=== PATIENT | male | born 1950 | race Caucasian/White ===

== ENCOUNTER 2021-02-25 18:40 | Inpatient (IN) | payer MEDICARE ==
[2021-02-25] VITALS (52 sets, daily range): BP systolic 47–160; BP diastolic 36–93
[~2021-02-25] VITALS: Ht 177.8 cm; Wt 87.9 kg
--- NOTE | ~2021-02-25 | CON ---
[address] [address] CONSULTATION Name: RYAN ROBLES Room: [address] IN .R.#: [id number] Admission: 02/25/21 Attend Phys: Amadou Velasco MD Discharge: 02/26/21 Date of : 50 Report #: [id number] THIS REPORT FOR: cc: LITTLE CARLOS,Alexandra Lacey MD ~ DATE OF CONSULTATION: 02/26/2021 NEPHROLOGY CONSULTATION CONSULTING PHYSICIAN: Dr. Velasco. REASON FOR NEPHROLOGY CONSULTATION: Acute kidney injury. REASON FOR ADMISSION: Chest pain. HISTORY OF PRESENT ILLNESS: This is a 70-year-old male with history of insulin-dependent diabetes mellitus, hypothyroidism, neuropathy, hypertension, dyslipidemia, BPH and depression, was having chest pain on and off for the past 2 days. He had chest pain again on 02/25/2021 evening. EMS was activated. 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 He was taken to the [facility] where he coded, cardiac catheterization was completed, it showed chronic CAD and he was then transferred to the ICU. Here, he is on 2 vasopressors, intubated on 40% FiO2, not receiving any IV fluids. His baseline kidney function is not known. His creatinine was 5.3 when he came in and it is at 5.1 today this morning and he has been making urine, although it has not been documented. There is good urine output in the [place] bag. His liver enzymes are also elevated. Currently, does not respond to me, but he did have some sedation on. His blood pressures have been off and on low. ALLERGIES: None reported. REVIEW OF SYSTEMS: Not able to obtain from the patient. He is intubated and sedated. HOME MEDICATIONS: Include insulin, hydralazine, gabapentin, duloxetine, tamsulosin, Coreg, atorvastatin, gabapentin, levothyroxine, and finasteride. PAST MEDICAL HISTORY: Includes insulin-dependent diabetes, hypothyroidism, neuropathy, hypertension, dyslipidemia, [place] [address] CONSULTATION Name: RYAN ROBLES Room: [address]#: [id number] Admission: 02/25/21 Attend Phys: Amadou Velasco MD Discharge: 02/26/21 Date of : 50 Report #: [id number] PAST SURGICAL HISTORY: Not known. SOCIAL HISTORY: He lives with his . No history of any tobacco use and further social history could not be obtained from the patient because he is sedated. FAMILY HISTORY: The patient is not able to provide. PHYSICAL EXAMINATION: VITAL SIGNS: Blood pressure is 113/66, temperature 37.4, pulse rate is 98, respiratory rate is 12, and pulse ox 100% on 40% FiO2. GENERAL: He is intubated and sedated. HEAD AND EYES: Atraumatic and normocephalic. Conjunctivae normal. EARS, NOSE, AND THROAT: Normal ears and nose and NG tube with bloody secretions. ET tube in place. NECK: JVD could not be seen. CHEST: Bilateral diminished breath sounds. No crackles. CARDIOVASCULAR: S1, S2 normal. No murmurs. ABDOMEN: Soft, it was nondistended. LOWER EXTREMITIES: There is no lower extremity edema. NEUROLOGICAL FUNCTION: Could not be assessed right now because he is sedated. PSYCHIATRIC: Unable to assess right now. LABORATORY DATA: WBC 12.0, hemoglobin 9.8. Sodium is 136, potassium 4.1, BUN is 53, CO2 of 24 and a creatinine of 5.1 and initial blood glucose was in 400s and now it is in 200s. Other labs are reviewed.: IMAGING: Chest x-ray was reviewed. ASSESSMENT: 1. Acute kidney injury. Admission creatinine of 5.3 in the setting of hypotension and the patient also had cardiac arrest in the [facility]. Try to find out his baseline creatinine. UA looks like a contaminated specimen with 3+ protein, 3+ blood, but no rbc's. We would also check a CPK level. We will check a renal ultrasound. 2. EKG showed post-infarct angina, possibly aneurysm formation, cardiac catheterization revealed coronary artery disease status post cardiac arrest in the [facility], acute coronary syndrome, unclear onset. 3. Diabetic ketoacidosis, which is improving. 4. History of diabetes mellitus type 2. We will defer to Internal Medicine for management. 5. Elevated liver enzymes, likely because of shock. We will defer to Internal [address] [place] [address] CONSULTATION Name: RYAN ROBLES Room: [address] IN M.R.#: [id number] Admission: 02/25/21 Attend Phys: Amadou Velasco MD Discharge: 02/26/21 Date of : 50 Report #: [id number] Medicine for management. 6. Hypertension. Currently in shock. 7. Dyslipidemia. We will defer to internal medicine. PLAN: 1. From Nephrology standpoint, he is nonoliguric. Start IV fluids, D5 normal saline at 75 mL an hour. 2. There is no acute need for dialysis. 3. Check renal ultrasound and try to find out his baseline creatinine. 4. Check a CPK level. 5. Try to keep his MAP around 65 to 70 and avoid nephrotoxic agents. Avoid further IV contrast exposure. 6. The patient is at risk for worsening of his kidney function because of contrast exposure yesterday. 7. We will continue to follow with you. Currently, he is critically ill. I spent 35 minutes in his critical care, this time was spent in chart review, placing orders and care coordination. Discussed with the patient's nurse. Check morning labs. By: [id number] Davis MD /funmi
[2021-02-25 19:07] LABS: BE -13.9 mmol/L (-2 to +3); PCO2 VENOUS 22.7 mmHg (41.0-51.0); PO2 VENOUS 206.9 mmHg (35.0-45.0)
[2021-02-25 19:08] LABS: ABSOLUTE EOSINOPHILS 0.1 thou/uL (0.0-0.7); ABSOLUTE LYMPHOCYTES 3.2 thou/uL (0.8-5.3); ABSOLUTE MONOCYTES 0.9 thou/uL (0.0-1.2); ABSOLUTE NEUTROPHILS 7.5 thou/uL (1.6-8.1); BASOPHILS 0.4 %; EOSINOPHILS 0.8 %; HEMATOCRIT 33.6 % (42.0-52.0); HEMOGLOBIN 10.5 gm/dL (14.0-18.0); LYMPHOCYTES 27.5 %; MCH 29.3 pg (26.0-34.0); MCHC 31.4 g/dL (28.0-37.0); MCV 93.2 fL (80.0-100.0); MONOCYTES 7.4 %; MPV 8.7 fl. (7.2-11.1); NUCLEATED RBCS 0 /100WBC; PLATELET COUNT* 229 thou/uL (150-400); POLYS 63.9 %; RDW-CV 14.9 % (10.5-14.5); WBC 11.8 thou/uL (4.0-11.0)
[2021-02-25 19:20] LABS: BUN 55 mg/dL (7-18); CHLORIDE 100 mmol/L (98-107); CREATININE 5.3 mg/dL (0.6-1.3); GLUCOSE 454 mg/dL (70-99); POTASSIUM 4.4 mmol/L (3.5-5.1); SODIUM 134 mmol/L (136-145)
[2021-02-25 19:30] LABS: ALBUMIN 3.2 g/dL (3.4-5.0); ALKALINE PHOSPHATASE 136 U/L (46-116); LIPASE 133 U/L (73-393); MAGNESIUM 2.2 mg/dL (1.8-2.4); NT-PRO BRAIN NAT PEPTIDE 7242 pg/mL (<300); SGOT 613 U/L (15-37); SGPT 89 U/L (30-65); TOTAL BILIRUBIN 0.6 mg/dL (<0.1-1.0); TOTAL PROTEIN 6.3 g/dL (6.4-8.2)
[2021-02-25 19:35] LABS: INR 1.1; PROTIME 11.9 Seconds (9.20-11.50)
[2021-02-25 20:10] LABS: ANION GAP 23 mmol/L (7-16); CALCIUM < 5.0 mg/dL (8.5-10.1); CO2 11 mmol/L (21-32)
[2021-02-25 20:11] LABS: APTT 117.8 Seconds (25.0-31.3)
[2021-02-25 22:10] LABS: ANTI-Xa-UNFRACTIONATED HEP 7.531; BE 3.3 mmol/L (-2 to +3); PCO2 34.4 mmHg (35.0-45.0); pH 7.503 (7.340-7.450)
[2021-02-25 22:17] LABS: PO2 143.3 mmHg (75.0-100.0)
[2021-02-26] VITALS (33 sets, daily range): BP systolic 72–189; BP diastolic 49–103
[2021-02-26 01:35] LABS: HEMATOCRIT 29.8 % (42.0-52.0); HEMOGLOBIN 9.8 gm/dL (14.0-18.0); MCH 29.2 pg (26.0-34.0); MCV 88.6 fL (80.0-100.0); MPV 8.4 fl. (7.2-11.1); NUCLEATED RBCS 0 /100WBC; PLATELET COUNT* 240 thou/uL (150-400); RBC 3.36 mil/uL (4.50-6.00); RDW-CV 14.4 % (10.5-14.5)
[2021-02-26 01:44] LABS: CALCIUM 8.3 mg/dL (8.5-10.1); CREATININE 5.1 mg/dL (0.6-1.3); POTASSIUM 4.1 mmol/L (3.5-5.1)
[2021-02-26 01:46] LABS: CREATININE 5.1 mg/dL (0.6-1.3); POTASSIUM 4.1 mmol/L (3.5-5.1)
[2021-02-26 01:47] LABS: CALCIUM 8.2 mg/dL (8.5-10.1); MAGNESIUM 2.1 mg/dL (1.8-2.4); PHOSPHORUS* 4.2 mg/dL (2.5-4.9)
[2021-02-26 02:23] LABS: URINE BILIRUBIN NEGATIVE (Negative); URINE BLOOD 3+ (Negative); URINE CLARITY CLEAR; URINE COLOR YELLOW; URINE GLUCOSE-RANDOM 2+ (Negative); URINE KETONES 1+ (Negative); URINE LEUKOCYTES-REFLEX NEGATIVE (Negative); URINE NITRITE-REFLEX NEGATIVE (Negative); URINE PROTEIN 3+ (Negative); URINE UROBILINOGEN 0.2 E.U./dl (0.2-1.0)
[2021-02-26 03:26] LABS: FINE GRANULAR CASTS 0-3 Few /LPF (None Seen); HYALINE CASTS 0-3 Few /LPF (None Seen); SQUAMOUS 4-10 Moderate /LPF (0-3)
[2021-02-26 03:27] LABS: BACTERIA-REFLEX 1-9 Few /HPF (None Seen); CRYSTALS None Seen /LPF (None Seen); URINE RBC 0-2 Rare /HPF (0-2); URINE WBC-REFLEX 6-15 Few /HPF (0-5)
[2021-02-26] MEDS ORDERED: PROSCAR 5MG TABL5 M1 PO (04:12)
[2021-02-26] MEDS ORDERED: LEVO-T100 MCG PO (04:12)
[2021-02-26] MEDS ORDERED: NEURONTIN 300M300 M2 PO (04:12)
[2021-02-26] MEDS ORDERED: VITAMIN D3250 MC1 PO (04:13)
[2021-02-26] MEDS ORDERED: HYDRALAZINE 2525 M1 PO (04:14)
[2021-02-26] MEDS ORDERED: GLUCOSAMINE CO1 EAC4 PO (04:14)
[2021-02-26] MEDS ORDERED: LIPITOR 40 MG T40 M1 PO (04:14)
[2021-02-26] MEDS ORDERED: DULOXETINE HCL30 MG PO (04:15)
[2021-02-26] MEDS ORDERED: FLOMAX0.4 MG PO (04:15)
[2021-02-26] MEDS ORDERED: INSULIN AS100 UNIT/2 (04:17)
[2021-02-26 06:10] LABS: ABSOLUTE MONOCYTES 0.8 thou/uL (0.0-1.2); ABSOLUTE NEUTROPHILS 10.2 thou/uL (1.6-8.1)
[2021-02-26 06:11] LABS: PLATELET ESTIMATE ADEQUATE
[2021-02-26 09:28] LABS: CALCIUM 8.5 mg/dL (8.5-10.1); POTASSIUM 3.3 mmol/L (3.5-5.1)
[2021-02-26 09:31] LABS: ALBUMIN 2.7 g/dL (3.4-5.0); MAGNESIUM 1.9 mg/dL (1.8-2.4); PHOSPHORUS* 3.3 mg/dL (2.5-4.9)
--- NOTE | 2021-02-26 11:31 | EKG ---
[place] [address] ELECTROCARDIOGRAM REPORT Name: RYAN ROBLES Room: [address] ADM IN .R.#: [id number] Admission: 02/25/21 Attend Phys: Amadou Velasco, Discharge: Date of : 50 Date of Service: 02/25/211840 Report #: [id number] THIS REPORT FOR: //name// [facility] ED Test Date: 2021-02-25 Test Time: 18:41:47 Pat Name: RYAN ROBLES Department: Room: [facility] Gender: M Release Specialist: KENDY : 1950 Requested By: Patrick Li Order Number: [id number] MD: Frank Murphy Measurements Intervals [place] Rate: 49 P: LA: QRS: -63 QRSD: 135 T: -35 QT: 514 QTc: 465 Interpretive Statements Junctional rhythm Right bundle branch block Inferior infarct, recent Minimal ST elevation, anterior leads Lateral leads are also involved No previous ECG available for comparison Electronically Signed On 02-26-2021 11:31:12 CDT by Frank Murphy [email or web address] <ELECTRONICALLY SIGNED> By: Chino Murphy MD, [facility] 02/26/21 1131 40 40 Chino Murphy MD, [facility] /EPI
--- NOTE | 2021-02-26 11:46 | 2DMMODE ---
[place] [address] 2 D/M-MODE ECHOCARDIOGRAM Name: TRAVISRYAN Catracho Room: [address] IN .R.#: [id number] Admission: 02/25/21 Attend Phys: Amadou Velasco, Discharge: 02/26/21 Date of : 50 Date of Service: 02/26/21 1145 Report #: [id number] THIS REPORT FOR: cc: LITTLE CARLOS,Chino Ordaz MD [facility] ~ APPROVED REPORT Study performed: 02/25/2021 22:59:13 EXAM: Comprehensive 2D, Doppler, and color-flow Echocardiogram Patient Location: Bedside BSA: 2.14 HR: 96 bpm BP: 129/66 mmHg Other Information Study Quality: Adequate Technically limited study due to inability to position patient, patient on ventilator. Indications Congestive Heart Failure 2D Dimensions IVSd: 15.06 (7-11mm) LVOT Diam: 19.91 (18-24mm) LVDd: 38.94 mm PWd: 10.27 (7-11mm) Ascending Ao: 39.42 (22-36mm) LVDs: 31.48 (25-40mm) Aortic Root: 31.20 mm Volumes Left Atrial Volume (Systole) LA ESV Index: 20.00 mL/m2 Aortic Valve AoV Peak Lupillo.: 1.46 m/s AO Peak Gr.: 8.56 mmHg LVOT Max P.84 mmHg AO Mean Gr.: 4.52 mmHg LVOT Mean P.87 mmHg LVOT Max V: 0.98 m/s AO V2 VTI: 17.01 cm LVOT Mean V: 0.62 m/s CATHRYN (VTI): 2.57 cm2 LVOT V1 VTI: 14.03 [place] [address] 2 D/M-MODE ECHOCARDIOGRAM Name: RYAN ROBLES Room: [address] IN ..#: [id number] Admission: 02/25/21 Attend Phys: Amadou Velasco, Discharge: 02/26/21 Date of : 50 Date of Service: 02/26/21 1145 Report #: [id number] Mitral Valve E/A Ratio: 0.85 MV Decel. Time: 128.46 ms MV E Max Lupillo.: 0.67 m/s MV PHT: 37.25 ms MVA (PHT): 5.91 cm2 TDI E/Lateral E': 3.35 E/Medial E': 5.58 Medial E' Lupillo.: 0.12 m/s Lateral E' Lupillo.: 0.20 m/s Pulmonary Valve PV Peak Lupillo.: 1.00 m/s PV Peak Gr.: 4.04 mmHg Tricuspid Valve RAP Estimate: 10.00 mmHg TR Peak Gr.: 30.30 mmHg RVSP: 40.30 mmHg PA Pressure: 40.30 mmHg Left Ventricle The left ventricle is normal size. Regional wall motion abnormalities are noted. There is normal left ventricular wall thickness. Left ventricular systolic function is mildly decreased. LVEF is 40-45%. Grade I - abnormal relaxation pattern. Right Ventricle Right ventricle is dilated. Right ventricle is hypokinetic. Pacemaker lead is present. Atria The left atrium size is normal. Lipomatus atrial septal hypertrophy is present. The right atrium size is normal. Aortic Valve The aortic valve is normal in structure. No aortic regurgitation is present. There is no aortic valvular stenosis. Mitral Valve The mitral valve is normal in structure. Trace mitral regurgitation. No evidence of mitral valve stenosis. Tricuspid Valve The tricuspid valve is normal in structure. [place] [address] 2 D/M-MODE ECHOCARDIOGRAM Name: RYAN ROBLES Room: [address] IN ..#: [id number] Admission: 02/25/21 Attend Phys: Amadou Velasco, Discharge: 02/26/21 Date of : 50 Date of Service: 02/26/21 1145 Report #: [id number] Pulmonic Valve The pulmonary valve is normal in structure. Trace pulmonic regurgitation. Great Vessels The aortic root is normal in size. The ascending aorta is borderline dilated. IVC is normal in size and collapses <50% with inspiration. Pericardium There is no pericardial effusion. <Conclusion> LVEF is 40-45%. Grade I - abnormal relaxation pattern. Left ventricular systolic function is mildly decreased. There is normal left ventricular wall thickness. The left ventricle is normal size. Regional wall motion abnormalities are noted. Right ventricle is dilated. Right ventricle is hypokinetic. The aortic valve is normal in structure. No aortic regurgitation is present. There is no aortic valvular stenosis. Trace mitral regurgitation. Mild tricuspid regurgitation. Trace pulmonic regurgitation. The ascending aorta is borderline dilated. There is no pericardial effusion. <ELECTRONICALLY SIGNED> By: Chino Murphy MD, FACC 02/26/21 1145 1145 1145 Chino Murphy MD, FACC /INF
--- NOTE | 2021-02-28 09:25 | CARD ---
[address] [address] CARDIAC CATH REPORT Name: RYAN ROBLES Room: [address]#: [id number] Admission: 02/25/21 Attend Phys: mAadou Velasco MD Discharge: 02/26/21 Date of : 50 Report #: [id number] THIS REPORT FOR: cc: LITTLE CARLOS,Aric Brandt MD ~ APPROVED REPORT Study performed: 02/25/2021 18:43:28 Patient Details Patient Status: ED Room #: The patient is a 70 year-old male Event Personnel Aric Rangel Sewer Hand, Marlen Sutton RN Raw Scales Operator, Misa Real RN RN, Kei Starks [employer], Bozena Feliciano RTR Monitor Procedures Performed Art Access - R femoral artery Fidel Access - L femoral vein Left Heart Cath w/or w/o Coronaries Temporary Pacemaker Lead Inserted Indication STEMI (>24 hrs to = 48 hrs), Unstable angina , Chest pain, The patient presented with chest pain and dyspnea, onset greater than 24 hrs. ECG revealed large Q waves with mild ST elevation of 1 mm in the inferior leads-suggestive for infarct with postinfarct angina and/or aneurysm. Risk Factors Peripheral Vascular Disease, HypercholesterolemiaPhysical Activity, HypertensionRenal Failure, Diabetes Admission/Lab Medications/Medications given during procedure Lidocaine Subcut 14 ml, Oxygen Nasal cannula 2 l per min, 0.9% Sodium Chloride IV 75 ml per hr, Angiomax IV 13 ml, Aggrastat IV 9.2 ml, Angiomax Drip IV 30 ml per hr, Dopamine IV 5 mcg per kg per min, Dopamine IV 10 mcg per kg per min, Dopamine IV 6 mcg per kg per min, Dopamine IV 3 mcg per kg per min, Versed IV 2 [place] [address] CARDIAC CATH REPORT Name: RYAN ROBLES Room: [address]#: [id number] Admission: 02/25/21 Attend Phys: Amadou Velasco MD Discharge: 02/26/21 Date of : 50 Report #: [id number] The patient was brought emergently to the Cardiac Catheterization Laboratory and was prepped and draped in a sterile manner. The right femoral was infiltrated with 2% Lidocaine subcutaneous anesthesia. IV conscious sedation was used throughout procedure with appropriate monitoring and was performed in the presence of a registered nurse who was an independent trained observer other than the physician performing the procedure. A [place] 6 FR sheath was inserted into the right femoral artery. Coronary angiography was performed using coronary diagnostic catheters. The right coronary system was accessed and visualized with a Guide 6 Fr AL .75 catheter. The left coronary system was accessed and visualized with a Diagnostic 6 Fr JL 4 catheter. The left ventricle was accessed and visualized with a Diagnostic 6 Fr Pigtail catheter. Left ventricular/Aortic Valve gradient assessed via catheter pullback. Left ventriculogram was performed in OMALLEY projection. The patient tolerated the procedure well and there were no complications associated with the procedure. A Argon 6 Fr sheath was inserted in the right femoral vein. A temporary pacemaker was inserted and paced at a rate of 70 with a MA of 8. Patient was intubated with a 7.5 size tube and placed on a vent. Intraoperative Conscious Sedation Sedation start time: 2026 Case end Time: 2027 Versed 4 mg Fluoro Time: 26.6 minutes Dose: DAP [id number] cGycm2 2111 mGy Contrast Type and Amount: Visipaque 120 mL Coronary Angiography The patient's coronary anatomy is right dominant. Diagnostic Cath Left Main The left main artery is a large-caliber vessel with mild distal tapering. LAD The LAD is a moderate-sized caliber vessel, calcified. It traverses the anterior wall and wraps around the apex. There is moderate to severe diffuse disease in the mid and distal segments with HARESH-3 blood flow. Diagonal 1 The diagonal artery is heavily calcified with a total occlusion at the ostium. There is faint filling of the proximal segment via collaterals. Circumflex There is mild disease in the proximal segment of the left circumflex artery. Supplies 2 [place] [address] CARDIAC CATH REPORT Name: RYAN ROBLES Catracho Room: [address] IN ..#: [id number] Admission: 02/25/21 Attend Phys: Amadou Velasco MD Discharge: 02/26/21 Date of : 50 Report #: [id number] OM1 This is a high takeoff from the left circumflex artery. This is a small to moderate-sized caliber vessel, with severe disease proximally. OM2 This is a moderate-sized caliber vessel, with no flow-limiting lesions. Right Coronary The RCA appears to be dominant vessel, heavily calcified throughout. There is a total occlusion in the proximal segment. Left Ventriculography The left ventricle is normal in size with Decreased contractility. The left ventricular ejection fraction is estimated to be 30-35%. Left ventricular wall motion abnormalities are present. Hemodynamics The aortic pressure is 111/45 mmHg with a mean of 36 mmHg. The left ventricular pressure is 113/19 mmHg with a mean of mmHg. The left ventricular end diastolic pressure is 22 mmHg. PCI Technique Lesion Percutaneous coronary intervention was performed on the proximal right coronary artery. The lesion stenosis prior to intervention was 100% with HARESH 0 flow. A 6FR AL .075 100CM Guide Catheter was used to engage the RCA ostium. COMMENTS Unsuccessful PCI due to inability to pass a wire(DENY, jeannie duff) into the distal RCA. When the patient first presented to the cardiac Echocardiography Tech, he appeared to have high-grade AV block with a heart rate greater than 40 bpm with an adequate blood pressure. During the procedure, the patient's heart rate started to decrease and dopamine was started. However, both the heart rate and blood pressure continued to decrease. The patient was unresponsive and required intubation for airway protection. A temporary pacemaker was inserted via the right femoral vein, paced at 70 bpm. Heart rate and blood pressure were stable at this time. He did not have any ventricular arrhythmias. Upon conclusion of the cardiac catheterization, he was taken to the ICU. Conclusion 1. The patient presented with post infarct angina as represented on the ECG. Onset greater than 24 hours. 2. The culprit was a total occlusion of the RCA, that is heavily [address] [address] CARDIAC CATH REPORT Name: RYAN ROBLES Room: [address]#: [id number] Admission: 02/25/21 Attend Phys: Amadou Velasco MD Discharge: 02/26/21 Date of : 50 Report #: [id number] calcified. Unsuccessful PCI due to inability to pass a wire into the distal RCA segment. 3. Total occlusion of the first diagonal artery with faint filling of the proximal segment. 4. There is moderate to severe diffuse disease in the mid and distal segments of the LAD with HARESH-3 blood flow. 5. The patient presented with high-grade AV block, requiring use of dopamine and temporary transvenous pacemaker. 6. The patient developed respiratory distress, requiring intubation. Transferred to ICU. <ELECTRONICALLY SIGNED> By: Aric Rangel MD 02/28/21924 4 4Aric Rangel MD /INF
--- NOTE | 2021-03-02 08:24 | CON ---
[address] [address] CONSULTATION Name: RYAN ROBLES Catracho Room: [address] IN M.R.#: [id number] Admission: 02/25/21 Attend Phys: Amadou Velasco MD Discharge: 02/26/21 Date of : 50 Report #: [id number] THIS REPORT FOR: cc: LITTLE CARLOS,LITTLE Rangel,Aric Felipe MD ~ DATE OF CONSULTATION: 02/25/2021 INDICATION: Chest pain. HISTORY OF PRESENT ILLNESS: This is a 70-year-old gentleman with a history of insulin-dependent diabetes mellitus, hypothyroidism, neuropathy, hypertension, hypercholesterolemia, BPH, depression, presenting with chest pain on and off for the past 2 days. The patient is a poor historian, but reports having upper chest pain on and off since yesterday. His reports that he was unable to stand on his own last evening. EMS was called, but the patient did not want to go to the hospital. He reports having intermittent upper chest pain overnight, worse this morning, and decided to call 911. He denies any shortness of breath, fever or nausea. In the ER, he is noted to have what appears to be high-grade AV block with Q-waves inferiorly with ST segment elevation of 1.5 mm, suspicious for prior inferior wall heart attack with aneurysm. There were nonspecific ST segment changes in the lateral leads. ALLERGIES: Unknown. MEDICATIONS: Include; insulin, hydralazine 25 mg 3 times a day, gabapentin, duloxetine, tamsulosin, possibly Coreg 25 twice a day, atorvastatin 40, gabapentin, levothyroxine, and finasteride. SOCIAL HISTORY: Lives with his . No history of tobacco use. FAMILY HISTORY: Noncontributory. REVIEW OF SYSTEMS: Unobtainable. PHYSICAL EXAMINATION: VITAL SIGNS: Initial blood pressure was 90/70, heart rate of 40 beats per minute. GENERAL APPEARANCE: Elderly appearing male in distress. HEENT: Normocephalic, atraumatic. Oral mucosa moist. NECK: Supple. LUNGS: Clear to auscultation. CARDIAC: Bradycardic. S1, S2 positive. ABDOMEN: Soft, nontender. EXTREMITIES: No cyanosis[place] [address] CONSULTATION Name: RYAN ROBLES Room: [address]#: [id number] Admission: 02/25/21 Attend Phys: Amadou Velasco MD Discharge: 02/26/21 Date of : 50 Report #: [id number] DIAGNOSTIC DATA: ECG reveals high-grade AV block with Q-waves in the inferior leads with [address] elevation. ASSESSMENT AND PLAN: 1. Acute coronary syndrome, unclear onset. ECG suggested for post-infarct angina, possible aneurysm formation. The patient with ongoing pain and we will proceed with emergent cardiac catheterization. He was treated with heparin, aspirin and Brilinta in the ER. 2. Diabetes mellitus, continue with insulin and check fingersticks. 3. Hypercholesterolemia, continue statin therapy. 4. Hypertension, hold medications until blood pressure improves. <ELECTRONICALLY SIGNED> By: Aric Rangel MD 03/02/2124 54 2030Aric Rangel MD /nt
== END 2021-02-26 09:12 | DRG 208 ==
LOC: M.CL 18:40 → M.ERS 18:40 → M.CL 19:07 → M.TBA-ER 20:09 → M.ICU 21:17
PROVIDERS: Family Medicine; ADMIT Internal Medicine; ATTEND Internal Medicine
PROC: 5A1223Z Performance of Cardiac Pacing, Continuous (ICD-10-PCS; principal; 2021-02-25)
PROC: B215YZZ Fluoroscopy of Left Heart using Other Contrast (ICD-10-PCS; principal; 2021-02-25)
PROC: B211YZZ Fluoroscopy of Multiple Coronary Arteries using Other Contrast (ICD-10-PCS; principal; 2021-02-25)
PROC: 0BH17EZ Insertion of Endotracheal Airway into Trachea, Via Natural or Artificial Opening (ICD-10-PCS; principal; 2021-02-25)
PROC: 02JA3ZZ Inspection of Heart, Percutaneous Approach (ICD-10-PCS; principal; 2021-02-25)
PROC: 4A023N7 Measurement of Cardiac Sampling and Pressure, Left Heart, Percutaneous Approach (ICD-10-PCS; principal; 2021-02-25)
PROC: 5A1935Z Respiratory Ventilation, Less than 24 Consecutive Hours (ICD-10-PCS; principal; 2021-02-25)
PROC: 02HV33Z Insertion of Infusion Device into Superior Vena Cava, Percutaneous Approach (ICD-10-PCS; principal; 2021-02-25)
DX: J96.01 Acute respiratory failure with hypoxia (principal); I21.3 ST elevation (STEMI) myocardial infarction of unspecified site; E11.10 Type 2 diabetes mellitus with ketoacidosis without coma; N17.0 Acute kidney failure with tubular necrosis; I24.9 Acute ischemic heart disease, unspecified; I46.9 Cardiac arrest, cause unspecified; R57.0 Cardiogenic shock; E87.6 Hypokalemia; E78.5 Hyperlipidemia, unspecified; E78.00 Pure hypercholesterolemia, unspecified; E03.9 Hypothyroidism, unspecified; E11.40 Type 2 diabetes mellitus with diabetic neuropathy, unspecified; F32.9 Major depressive disorder, single episode, unspecified; N40.0 Benign prostatic hyperplasia without lower urinary tract symptoms; I11.0 Hypertensive heart disease with heart failure; I25.10 Atherosclerotic heart disease of native coronary artery without angina pectoris; I50.9 Heart failure, unspecified; E11.649 Type 2 diabetes mellitus with hypoglycemia without coma; D64.9 Anemia, unspecified; Z79.4 Long term (current) use of insulin; Z79.82 Long term (current) use of aspirin; Z79.899 Other long term (current) drug therapy